=== PATIENT | male | born 1965 | race Caucasian/White ===

== ENCOUNTER 2018-08-22 10:32 | Emergency (ER) | payer OTHER ==
[2018-08-22 10:42] VITALS: BP 152/79
--- NOTE | 2018-08-22 10:44 | UC ---
Headache HPI - HPI Summary HPI Summary: 53 yo male presents with left sided numbness. He tells me that upon waking this morning at around 0700 he noticed some numbness in his left arm. Since that time the numbness has progressed to the left side of his face and left leg - prompting his visit to . He was feeling well yesterday. Currently denies fever , chills, headache, dizziness, vision changes, weakness, SOB, chest pain, abdominal pain, n/v. - History Of Current Complaint Chief Complaint: UCGeneralIllness Stated Complaint: L FACE,ARM NUMBNESS Time Seen by Provider: 08/22/18 10:43 Hx Obtained From: Patient Onset/Duration: Sudden Onset Pain Intensity: 0 Pain Scale Used: 0-10 Numeric - Allergies/Home Medications Allergies/Adverse Reactions: Allergies Allergy/AdvReac Type Severity Reaction Status Date / Time erythromycin base Allergy GI Upset Verified 08/22/18 11:27 Home Medications: Home Medications NK [No Home Medications Reported] 08/22/18 [History Confirmed 08/22/18] PMH/Surg Hx/FS Hx/Imm Hx - Additional Past Medical History Additional PMH: None - Surgical History Surgical History: Yes Surgery Procedure, Year, and Place: 1990 - SOFT TISSUE REMOVAL OF NEAR EUSTACHIAN TUBE -Lt SIDE - Family History Known Family History: Positive: None - Social History Occupation: Employed Full-time Lives: With Family Alcohol Use: Occasionally Substance Use Type: None Smoking Status (MU): Never Smoked Tobacco Review of Systems All Other Systems Reviewed And Are Negative: Yes Constitutional: Positive: Negative Skin: Positive: Negative Eyes: Positive: Negative ENT: Positive: Negative Respiratory: Positive: Negative Cardiovascular: Positive: Negative Gastrointestinal: Positive: Negative Neurovascular: Positive: Negative Musculoskeletal: Positive: Negative Neurological: Positive: Numbness - left face, arm, and leg Psychological: Positive: Negative Physical Exam - Summary Physical Exam Summary: GENERAL: NAD. WDWN. No pain distress. SKIN: No rashes, sores, ulcers, masses, lesions. HEENT: Head: AT/NC Eyes: PERRLA. EOM intact. Conjunctiva clear without inflammation or discharge. Ears: Hearing grossly normal. TMs intact, no bulging, erythema, or edema. Nose: Nasal mucosa pink and moist. NTTP maxillary and frontal sinus. Throat: Posterior oropharynx without exudates, erythema, or tonsillar enlargement. Uvula midline. NECK: Supple. Nontender. No lymphadenopathy. CHEST: CTAB. No r/r/w. No accessory muscle use. Breathing comfortably and in no distress. CV: RRR. Without m/r/g. Pulses intact. Brisk cap refill. MSK: FROM in B/L UEs and LEs with symmetric strength. NEURO: A&Ox3. 3 word recall, remote, recent memory, ability to follow 2-step directions, and attention intact. CN: II: Peripheral hudson intact. Vision normal. III, IV, : EOMI. No nystagmus. PERRLA. V: Sensations intact and symmetric. Opens mouth and clenches teeth. VII: No facial asymmetry. Forehead wrinkles. Grins, shuts eyes, frowns, puffs cheeks. VIII: Hearing intact to finger rub. IX, X: Swallows and coughs. Uvula midline. XI: Shrugs shoulders. Turns head against resistance. XII: No tongue deviation [id number] are intact. Gait with normal base. Romberg: maintains balance, no pronator drift. Normal speech. No facial drooping. PSYCH: Age appropriate behavior. GCS 15 Triage Information Reviewed: Yes Vital Signs: Initial Vital Signs Temp 98 F 08/22/18 10:40 Pulse 67 08/22/18 10:40 Resp 16 08/22/18 10:40 BP 152/79 08/22/18 10:40 Pulse Ox 100 08/22/18 10:40 Vital Signs Reviewed: Yes National Institutes Of Health - NIH Scale Level of Consciousness: Alert/Keenly Responsive Ask Patient the Month and His/Her Age: Both Correct Ask Pt to Open/Close Eyes and Clinical Documentation Nurse/Release Non-Paretic Hand: Both Correctly Best Gaze (Only Horizontal Eye Movement): Normal Visual Field Testing: No Visual Loss Facial Paresis-Pt to Smile & Close Eyes or Grimace Symmetry: Normal/Symmetrical Motor Function - Right Arm: No Drift-Holds 10 Seconds Motor Function - Left Arm: No Drift-Holds 10 Seconds Motor Function - Right Leg: No Drift-Holds 10 Seconds Motor Function - Left Leg: No Drift-Holds 10 Seconds Limb Ataxia-Must be out of Proportion to Weakness Present: Absent Sensory (Use Pinprick to Test Arms/Legs/Trunk/Face): Normal Best Language (Describe Picture, Name Items): No Aphasia Dysarthria (Read Several Words): Normal Extinction and Inattention: No Abnormality Total Score: 0 Headache Course/Dx - Course Course Of Treatment: EKG: NSR 65bpm. No ST changes or T wave inversion as read by Dr. Foreman. Discussed with pt that his symptoms are concerning for TIA, CVA, or cardiac/CV pathology and recommend that he go to the ED for further evaluation. He refused ambulance transfer and his will drive him. - Differential Dx/Diagnosis Provider Diagnosis: Left sided numbness Discharge - Sign-Out/Discharge Documenting (check all that apply): Patient Departure All imaging exams completed and their final reports reviewed: No Studies - Discharge Plan Condition: Stable Disposition: HOME-RECOMMEND TO ED Referrals: Jules Alvarez MD [Primary Care Provider] - Additional Instructions: Please go to the ER for further evaluation of your left sided numbness - Billing Disposition and Condition Condition: STABLE Disposition: Home-Recommend to ED - Attestation Statements Provider Attestation: I was available for consult. This patient was seen by the MILLIE. The patient was not presented to, seen by, or examined by me
== END 2018-08-22 11:03 | disposition home health service (06) ==
LOC: UCEAST 10:32
DX: R20.0 Anesthesia of skin (principal); Z88.1 Allergy status to other antibiotic agents
CPT/HCPCS: 93005; 99212; G0463

== ENCOUNTER 2018-08-22 11:16 | Emergency (ER) | payer OTHER ==
[2018-08-22] MEDS ORDERED: NS 0.9% 1000 ML* 1,000 ML IV ONE (11:31)
[2018-08-22] MEDS ORDERED: LORazepam INJ* 2 MG/ML 1 ML VIAL IV PUSH ONE (11:41)
--- NOTE | 2018-08-22 11:41 | ED ---
Neurological HPI - HPI Summary HPI Summary: This patient is a 53 year old male presenting to [facility] accompanied by with a chief complaint of neurological deficit since waking up this morning. Patient states he woke up with a tingling down his left side. At first, he believed that he had slept on his side wrong, but the sensation did not disappear. Patient does not remember any recent injuries. The pain is rated 0/10 in severity. Symptoms aggravated by nothing. Symptoms alleviated by nothing. Patient denies fever, shakes, chills, nausea, vomiting, cough. - History of Current Complaint Chief Complaint: EDNeurologicalDeficit Stated Complaint: NUMBNESS DOWN LEFT SIDE OF BODY Time Seen by Provider: 08/22/18 11:31 Hx Obtained From: Patient Onset/Duration: Started hours ago, Still Present Timing: Constant Onset Severity: Mild Current Severity: Mild Neurological Deficit Location: Generalized - left Pain Intensity: 0 Pain Scale Used: 0-10 Numeric Character: Paresthesia Aggravating: Nothing Alleviating: Nothing Associated Signs and Symptoms: Positive: Negative - fever, shakes, chills, nausea, vomiting, cough - Allergy/Home Medications Allergies/Adverse Reactions: Allergies Allergy/AdvReac Type Severity Reaction Status Date / Time erythromycin base Allergy GI Upset Verified 08/22/18 11:27 PMH/Surg Hx/FS Hx/Imm Hx Previously Healthy: Yes Endocrine/Hematology History: Denies: Hx Diabetes Cardiovascular History: Denies: Hx Hypertension, Hx Pacemaker/ICD History: Denies: Hx Renal Disease Musculoskeletal History: Denies: Hx Scoliosis Sensory History: Denies: Hx Hearing Aid Neurological History: Denies: Hx Headaches, Other Neuro Impairments/Disorders Psychiatric History: Denies: Hx Panic Disorder - Surgical History Surgery Procedure, Year, and Place: 1990 - SOFT TISSUE REMOVAL OF NEAR EUSTACHIAN TUBE -Lt SIDE Infectious Disease History: No Infectious Disease History: Denies: Traveled Outside the [place] in Last 30 Days - Family History Known Family History: Negative: Cardiac Disease, Hypertension - Social History Lives: With Family Alcohol Use: Occasionally Hx Substance Use: No Substance Use Type: Reports: None Hx Tobacco Use: No Smoking Status (MU): Never Smoked Tobacco Review of Systems Negative: Fever, Chills Negative: Cough Negative: Vomiting, Nausea Positive: Paresthesia - down left side All Other Systems Reviewed And Are Negative: Yes Physical Exam - Summary Physical Exam Summary: Appearance: Well appearing, no pain distress Skin: warm, dry, reflects adequate perfusion Head/face: normal Eyes: EOMI, LEW ENT: mucous membranes moist Neck: supple, non-tender, no meningismus Respiratory: CTA, breath sounds present Cardiovascular: RRR, pulses symmetrical Abdomen: non-tender, soft Bowel Sounds: present Musculoskeletal: normal, strength/ROM intact Neuro: normal, sensory motor intact, A&Ox3 Triage Information Reviewed: Yes Vital Signs On Initial Exam: Initial Vitals Temp Pulse Resp BP Pulse Ox 98.0 F 66 20 144/66 99 08/22/18 11:24 08/22/18 11:24 08/22/18 11:24 08/22/18 11:24 08/22/18 11:24 Vital Signs Reviewed: Yes Diagnostics - Vital Signs Vital Signs Temp Pulse Resp BP Pulse Ox 08/22/18 11:24 98.0 F 66 20 144/66 99 - Laboratory Result Diagrams: 08/22/18 11:47 08/22/18 11:47 Lab Statement: Any lab studies that have been ordered have been reviewed, and results considered in the medical decision making process. - CT CT Brain CT Interpretation Completed By: Radiologist Summary of CT Findings: CT Brain reveals, per radiologist, IMPRESSION: NO ACUTE INTRACRANIAL PATHOLOGY. ED physician has reviewed this radiology report. - EKG from Urgent Care Cardiac Rate: NL EKG Rhythm: Sinus Rhythm - 65 BPM Summary of EKG Findings: An EKG, taken at , reveals NSR (65 BPM), Normal axis , normal intervals, nonspecific ST NIH Scale - NIH Scale Level of Consciousness: Alert/Keenly Responsive Ask Patient the Month and His/Her Age: Both Correct Ask Pt to Open/Close Eyes and Strip Machine Tender/Release Non-Paretic Hand: Both Correctly Best Gaze (Only Horizontal Eye Movement): Normal Visual Field Testing: No Visual Loss Facial Paresis-Pt to Smile & Close Eyes or Grimace Symmetry: Normal/Symmetrical Motor Function - Right Arm: No Drift-Holds 10 Seconds Motor Function - Left Arm: No Drift-Holds 10 Seconds Motor Function - Right Leg: No Drift-Holds 10 Seconds Motor Function - Left Leg: No Drift-Holds 10 Seconds Limb Ataxia-Must be out of Proportion to Weakness Present: Absent Sensory (Use Pinprick to Test Arms/Legs/Trunk/Face): Normal Best Language (Describe Picture, Name Items): No Aphasia Dysarthria (Read Several Words): Normal Extinction and Inattention: No Abnormality Total Score: 0 Course/Dx - Course Course Of Treatment: Nurse's notes reviewed. Patient presents with hyperesthesia in his left side. Electrolytes are normal. NIH stroke score 0. His gait is normal and unaffected. No history of recent tick bites. No recent illness. Brain CT is negative. Discharged to follow up closely with primary care physician. - Differential Dx Differential Diagnoses Neuro: Positive: Other - Electrolyte imbalance, fatigue, radiculopathy, tumor - Diagnoses Provider Diagnoses: Paresthesia Discharge - Sign-Out/Discharge Documenting (check all that apply): Patient Departure - Discharge Plan Condition: Improved Disposition: HOME Patient Education Materials: Paresthesia (ED) Referrals: Jules Alvarez MD [Primary Care Provider] - Additional Instructions: Take a multivitamin daily and stay well-hydrated. Call your doctor first thing in the morning to schedule prompt follow-up. Return with difficulty with speech , walking, balance, numbness or new weakness. Return if worse or other concerns. - Billing Disposition and Condition Condition: IMPROVED Disposition: Home - Attestation Statements Document Initiated by Gage: Yes Documenting Scribe: Jeff Roach Provider For Whom Gage is Documenting (Include Credential): Laci Bazan MD Scribe Attestation: Jeff Hendrix scribed for Laci Bazan MD on 08/22/18 at 1958. Scribe Documentation Reviewed: Yes Provider Attestation: The documentation as recorded by the Jeff mon accurately reflects the service I personally performed and the decisions made by Laci mathias MD Status of Scribe Document: Viewed
[2018-08-22 11:58] LABS: ABS Basophils 0 10^3/ul (0-0.2); ABS Eosinophils 0.1 10^3/ul (0-0.6); ABS Lymphocytes 1.8 10^3/ul (1.0-4.8); ABS Monocytes 0.5 10^3/ul (0-0.8); ABS Neutrophils 2.8 10^3/ul (1.5-7.7); ABS Nucleated RBC 0 10^3/ul; Eosinophil % 1.8 %; Hematocrit 45 % (42-52); Hemoglobin 15.4 g/dl (14.0-18.0); Lymphocyte % 34.5 %; Mean Corpuscular HGB Conc 35 g/dl (31-36); Mean Corpuscular Hemoglobin 30 pg (27-31); Mean Corpuscular Volume 87 fL (80-94); Mean Platelet Volume 8.6 fL (7.4-10.4); Nucleated Red Blood Cells % 0.1; Platelet Count 210 10^3/ul (150-450); Red Blood Count 5.16 10^6/ul (4.00-5.40); Red Cell Distribution Width 13 % (10.5-15); White Blood Count 5.3 10^3/ul (3.5-10.8)
[2018-08-22 12:18] LABS: Albumin 4.3 g/dL (3.2-5.2); Albumin/Globulin Ratio 1.6 (1-3); BUN/Creatinine Ratio 12.1 (8-20); C Reactive Protein 1.71 mg/L (<8.01); Calcium 9.5 mg/dL (8.6-10.3); EGFR Non-African American 71.8 (>60); Globulin 2.7 g/dL (2-4); Potassium 3.9 mmol/L (3.5-5.0); Total Bilirubin 0.6 mg/dL (0.2-1.0)
[2018-08-22 12:36] LABS: TSH (Thyroid Stimulating Horm) 2.21 mcIU/mL (0.34-5.60)
[2018-08-22 13:10] VITALS: BP 147/78
[2018-08-22 13:56] LABS: Phosphorus 2.7 mg/dL (2.5-5.0)
== END 2018-08-22 13:57 | disposition home or self-care (01) ==
LOC: ED 11:16
DX: R20.0 Anesthesia of skin (principal)
CPT/HCPCS: 36415; 70450; 80053; 83605; 83735; 84100; 84443; 84484; 85025; 86140; 86618; 96361; 96374; 99282; J2060